=== PATIENT | female | born 1970 | race American Indian/Alaskan Native ===

== ENCOUNTER 2017-06-05 08:23 | Day surgery (SDC) | payer MEDICARE ==
[~2017-06-05 08:23] MED LIST: NACL 0.9% 1000 ML 1,000 ML IV SCH
[2017-06-05 10:02] VITALS: BP 158/99
[2017-06-05 10:27] LABS: Basophils % (Auto) 0.7 % (0.0-1.8); Eosinophils % (Auto) 2.4 % (0.0-4.3); Mean Corpuscular HGB Conc 32 % (30-34); Mean Corpuscular Hemoglobin 27 pg (28-32); Mean Corpuscular Volume 83 fl (79-97); Platelet Count 317 K/mm3 (140-440); Red Blood Count 4.11 M/mm3 (3.65-5.03); Red Cell Distribution Width 14.8 % (13.2-15.2); White Blood Count 6.4 K/mm3 (4.5-11.0)
[2017-06-05 10:37] LABS: INR 1.06 (0.87-1.13)
[2017-06-05 10:38] LABS: Partial Thromboplastin Time 38.9 Sec. (24.2-36.6)
--- NOTE | 2017-06-27 16:06 | Operative Report ---
Operative Report Operative Report: Procedure: Flanagan catheter repair Date: 06/05/2017 Physician: Liz West MD Indication: Flanagan catheter fractured at its external portion Technique/Repair/Findings: The patient and indwelling catheter were prepped and draped in the usual sterile fashion. The fractures external hub of the indwelling catheter was cut. A new hub was successfully affixed to the catheter in the usual fashion, per the instruction of the [employer] System Repair Kit manual. The repaired catheter successfully aspirated and flushed. Ethanol was used to lock the catheter, and a new sterile dressing was placed. EBL 0 Specimen None
== END 2017-06-05 12:03 | disposition home or self-care (01) ==
LOC: CATHLABREC 08:23
PROVIDERS: ATTEND Radiology Diagnostic Radiology
DX: T82.594A Other mechanical complication of infusion catheter, initial encounter (principal); M19.90 Unspecified osteoarthritis, unspecified site; J45.909 Unspecified asthma, uncomplicated; E11.9 Type 2 diabetes mellitus without complications; I25.2 Old myocardial infarction; I10 Essential (primary) hypertension; K21.9 Gastro-esophageal reflux disease without esophagitis; Z79.01 Long term (current) use of anticoagulants; Z98.890 Other specified postprocedural states; Z90.49 Acquired absence of other specified parts of digestive tract; Z86.73 Personal history of transient ischemic attack (TIA), and cerebral infarction without residual deficits; Z79.899 Other long term (current) drug therapy; Y83.1 Surgical operation with implant of artificial internal device as the cause of abnormal reaction of the patient, or of later complication, without mention of misadventure at the time of the procedure
CPT/HCPCS: 36415; 36575; 85025; 85610; 85730

== ENCOUNTER 2018-02-21 08:08 | Day surgery (SDC) | payer MEDICARE ==
[2018-02-21] MEDS ORDERED: NACL 0.9% 500 ML 500 ML IV SCH (09:00)
[2018-02-21] MEDS ORDERED: XYLOCAINE 1%/ EPI 1:100,000 INFILTRATI ONE ×2 (11:51→13:00)
[2018-02-21] MEDS ORDERED: HEPARIN/NS 5000 UNIT/500ML(CATH LAB) 500 ML IR ONE (11:51)
[2018-02-21] MEDS ORDERED: ANCEF/STERILE WATER 2 GM/20 ML 2 GM/20 ML SYRINGE IV ONE (12:25)
[2018-02-21] MEDS: VERSED ONE ×2 (12:36→12:38)
[2018-02-21] MEDS: SUBLIMAZE ONE ×2 (12:36→12:38)
[2018-02-21] MEDS: HEPARIN 10,000 UNITS/10 ML ONE ×2 (12:39→12:55)
[2018-02-21] MEDS ORDERED: SUBLIMAZE ONE (12:54)
[2018-02-21] MEDS ORDERED: VERSED ONE (12:54)
[2018-02-21] MEDS ORDERED: PERCOCET 5/325 PO ONE (13:39)
--- NOTE | 2018-02-21 14:01 | Short Stay Summary ---
Short Stay Documentation Date of service: 02/21/18 Narrative H&P: 47 year old female with TPN dependence and gastroparesis who has indwelling central flanagan catheter malfunction requiring removal and placement of a new flanagan. - History Principal diagnosis: Flanagan malfunction Past Medical History: other (gastroparesis with chronic TPN dependence) Past Surgical History: Other (Multiple catheters for TPN) - Allergies and Medications Current Medications: Allergies No Known Allergies Allergy (Unverified 06/05/17 08:23) Home Medications Medication Instructions Recorded Confirmed Last Taken Type ALPRAZolam [Xanax] 1 mg PO TID 06/05/17 02/21/18 02/19/18 History 1mg Albuterol Sulfate [Ventolin Hfa] 2 puff PO PRN PRN 06/05/17 02/21/18 02/05/18 History 2 puff Amlodipine Bes/Olmesartan Med 1 tab PO DAILY 06/05/17 02/21/18 02/20/18 History [Bridget 10-20 mg Tablet] 1 ta Cyclobenzaprine [Flexeril 10 MG 10 mg PO BID 06/05/17 02/21/18 02/20/18 History TAB] 10mg Diphenoxylate HCl/Atropine 1 tab PO PRN PRN 06/05/17 02/21/18 02/20/18 History [Lomotil 2.5-0.025 mg Tablet] 1 tab Furosemide [Lasix TAB] 40 mg PO DAILY 06/05/17 02/21/18 02/20/18 History 40mg Gabapentin [Neurontin] 800 mg PO TID 06/05/17 02/21/18 02/20/18 History 800mg HYDROcodone/ACETAMINOPHEN [Miracle 1 tab PO TID PRN 06/05/17 02/21/18 02/20/18 History 10-325 Tablet] 1 ta Naproxen 500 mg PO BID PRN 06/05/17 02/21/18 02/20/18 History 50mg Omeprazole Magnesium [PriLOSEC Otc] 40 mg PO BID 06/05/17 02/21/18 02/20/18 History 40mg Ondansetron [Zofran TAB] 8 mg PO PRN PRN 06/05/17 02/21/18 02/20/18 History 8mg Potassium Chloride [Klor-Con M20] 20 meq PO DAILY 06/05/17 02/21/18 02/20/18 History 20meq Promethazine [Phenergan TAB] 25 mg PO Q6H PRN 06/05/17 02/21/18 02/20/18 History 25mg Ranitidine HCl [Zantac 150 MG TAB] 150 mg PO BID 06/05/17 02/21/18 02/20/18 History 150mg cloNIDine [Catapres] 0.2 mg PO QID PRN 06/05/17 02/21/18 02/20/18 History 0.2mg diphenhydrAMINE [Benadryl] 50 mg IV DAILY 06/05/17 02/21/18 02/17/18 History 50mg Labetalol [Normodyne TAB] 400 mg PO BID 02/21/18 02/21/18 02/20/18 History 400mg Rifaximin [Xifaxan] 550 mg PO QMONTH 02/21/18 02/21/18 02/19/18 History 550mg Active Medications Sodium Chloride (Nacl 0.9% 500 Ml) 500 mls @ 50 mls/hr IV DIRECT ONEIL - Physical exam General appearance: no acute distress HEENT: Other (catheter site is c/d/i without purulence or pain) Lungs: Normal air movement - Brief post op/procedure progress note Date of procedure: 02/21/18 Pre-op diagnosis: TPN dependence Post-op diagnosis: same Procedure: L IJ Flanagan placement R IJ Flanagan removal Anesthesia: local (w/ conscious sedation) Surgeon: KENNY BRADFORD Estimated blood loss: minimal Condition: stable - Hospital course Hospital course: Ready for discharge - Disposition Condition at discharge: Stable Disposition: DC-01 TO HOME OR SELFCARE - Discharge Diagnoses (1) Gastroparesis Status: Acute (2) On total parenteral nutrition Status: Acute (3) Leaking central line catheter Status: Acute Short Stay Discharge Plan Activity: advance as tolerated Weight Bearing Status: Weight Bear as Tolerated Diet: regular Wound: keep clean and dry Follow up with: GLENIS ROBB MD [Primary Care Provider] - 7 Days
--- NOTE | 2018-02-21 14:06 | Operative Report ---
Operative Report Operative Report: EXAM: 1. Ultrasound-guided puncture of the left internal jugular vein 2. Fluoroscopic-guided placement of a left internal jugular tunneled cuffed 9.6 [place]ian single lumen Flanagan catheter. 3. Fluoroscopic-guided removal of the right internal jugular tunneled cuff 9.6 [place]ian single lumen Flanagan catheter. DATE: 02/21/18 INDICATION: 47-year-old female with TPN dependent secondary to gastroparesis with Flanagan malfunction requiring Flanagan removal and new Flanagan placement. MEDICATIONS: Please see nursing report for full details. DEVICES: 9.6 [place]ian single lumen tunneled cuffed Flanagan catheter. TELEGRAPH MECHANIC: KENNY BRADFORD MD CONTRAST: None PROCEDURE: The risks, benefits, and alternatives were discussed and informed consent was obtained. The patient was transported to the angiography suite in satisfactory/ stable condition and was transported onto the angiography table. The patient's left internal jugular vein was assessed with ultrasound and determined to be patent prior to procedure. The patient was prepped and draped in a sterile fashion. The puncture site was anesthetized. Under sonographic guidance, the left internal jugular vein was punctured with a 21-gauge micropuncture needle and a 0.018 inch wire was advanced into the inferior vena cava. 5 [place]ian transitional dilator was exchanged with the needle. Wire was used to candi the catheter intravascular distance to the right atrium. Wire and inner dilator were removed. 0.035 inch wire was advanced into the inferior vena cava. Wire was then exchanged for an Amplatz wire. A suitable exit site was identified on the patient's chest inferior and lateral to the venotomy. The site was anesthetized with local anesthetic and the track was anesthetized. Dermatotomy was made. The 9.6 [place]ian single lumen Flanagan catheter was tunneled between the dermatotomy to the venotomy with the assistance of the tunneler. Over 0.035 inch wire, the transitional dilator was exchanged for a 10 [place] peel-away sheath. The catheter was cut to appropriate size. Wire and introducer were removed. The catheter was advanced through the peel-away sheath under suspended respirations and positioned centrally under fluoroscopic guidance. The peel-away sheath was removed. 4-0 Vicryl suture was used to close the venotomy and Dermabond was then applied. Using a stiff Glidewire, catheter was slightly advanced into the right atrium. Wire was then removed. 3-0 Ethilon suture was used to secure the catheter at the dermatotomy. The catheter was charged with heparin 200 units per mL of space. Sterile dressing applied. Attention was then turned towards the right internal jugular chest Flanagan. Area was cleaned with ChloraPrep. Area was infiltrated with lidocaine. Stitch was cut and removed. Using blunt hemostat, the cuff was dissected out and removed. Catheter was then removed his pressure was held on the right internal jugular vein until hemostasis was achieved. Sterile dressing applied. The patient was transferred from the angiography suite back to the floor in stable condition. FINDINGS: 1. Excellent flow was obtained through the single lumen tunneled catheter. 2. The catheter tip is in the right atrium. 3. Successful catheter removal of the right internal jugular Flanagan catheter. The catheter was then evaluated and there was a metal piece of tubing in the catheter with clot around it making the catheter nonfunctional. IMPRESSION: 1. Successful ultrasound and fluoroscopically guided placement of a left internal jugular tunneled cuffed single-lumen Flanagan catheter. 2. Successful removal of a right internal jugular tunneled cuffed single-lumen Flanagan catheter.
[2018-02-21 14:20] VITALS: BP 121/67
== END 2018-02-21 14:30 | disposition home or self-care (01) ==
LOC: CATHLABREC 08:08
PROVIDERS: ATTEND Radiology Diagnostic Radiology
DX: T82.514A Breakdown (mechanical) of infusion catheter, initial encounter (principal); T82.818A Embolism due to vascular prosthetic devices, implants and grafts, initial encounter; I10 Essential (primary) hypertension; J45.909 Unspecified asthma, uncomplicated; K21.9 Gastro-esophageal reflux disease without esophagitis; M19.90 Unspecified osteoarthritis, unspecified site; G20 Parkinson's disease; E66.9 Obesity, unspecified; Z68.34 Body mass index [BMI] 34.0-34.9, adult; Z79.899 Other long term (current) drug therapy; Z90.710 Acquired absence of both cervix and uterus; Z90.49 Acquired absence of other specified parts of digestive tract; Z87.891 Personal history of nicotine dependence; Z86.73 Personal history of transient ischemic attack (TIA), and cerebral infarction without residual deficits; Z98.890 Other specified postprocedural states; Y83.1 Surgical operation with implant of artificial internal device as the cause of abnormal reaction of the patient, or of later complication, without mention of misadventure at the time of the procedure; Z82.49 Family history of ischemic heart disease and other diseases of the circulatory system; Z80.0 Family history of malignant neoplasm of digestive organs
CPT/HCPCS: 36558; 36589; 77001; 99156; 99157; C1751; C1752; C1769; J0690; J1644; J2250; J3010